=== PATIENT | female | born 1970 | race Caucasian/White ===

== ENCOUNTER 2016-07-17 10:19 | Emergency (ER) | payer OTHER ==
[~2016-07-17] VITALS: Ht 162.6 cm; Wt 87.0 kg
[~2016-07-17 10:19] MED LIST: ACET-1256 PO; ALBUAER19 INH
[2016-07-17 10:20] VITALS: TEMP 36.8; Ht 162.6 cm; Wt 87.0 kg
[2016-07-17 11:40] LABS: BASO % 0.3 %; BASO ABS # 0.03 K/uL (0-0.2); COMPLETE YES; EOS % 1.4 %; HEMATOCRIT 39.7 % (37-47); IG% 0.2 %; LYMPH % 30.9 %; LYMPH ABS # 3.08 K/uL (1.2-3.4); MEAN CELL VOLUME 88.2 fL (80-100); MEAN CORPUSCULAR HEMOGLOBIN 29.8 pg (25-34); MEAN CORPUSCULAR HGB CONC 33.8 g/dl (32-36); MEAN PLATELET VOLUME 9.7 fL (7.4-10.4); MONO % 5.5 %; NEUT % 61.7 %; PLATELET COUNT 333 K/uL (130-400); WHITE BLOOD COUNT 9.97 K/uL (4.8-10.8)
[2016-07-17 11:53] LABS: PARTIAL THROMBOPLASTIN RATIO 1.1; PROTHROMBIN TIME (PATIENT) 10.8 SECONDS (9.0-12.0)
[2016-07-17 11:57] LABS: BUN/CREATININE RATIO 13.6 (10-20); CALCIUM 8.2 mg/dl (8.5-10.1); CREATININE 0.72 mg/dl (0.60-1.20); POTASSIUM 3.4 mmol/L (3.5-5.1)
[2016-07-17 12:00] LABS: ALB/GLOB RATIO 0.9 (0.9-2)
[2016-07-17 12:04] LABS: URINE APPEARANCE CLEAR (CLEAR); URINE BILIRUBIN NEG (NEG); URINE COLOR YELLOW; URINE EPITHELIAL CELL AUTO >30 /lpf (0-5); URINE NITRITE POS (NEG); URINE PH 5.5 (4.5-7.5); URINE SPECIFIC GRAVITY 1.018 (1.000-1.030); UROBILINOGEN NEG (NEG)
[2016-07-17 12:10] LABS: MANUAL MICROSCOPIC REQUIRED? NO; REVIEW REQ? NO
[2016-07-17] MEDS ORDERED: MoRPHine SULFATE 4 MG/ML 1 ML CARP\\VIAL IV STA (12:20)
[2016-07-17] MEDS ORDERED: KETOROLAC TROMETHAMINE 30 MG/ML VIAL IV STA (12:20)
[2016-07-17] MEDS ORDERED: ONDANSETRON INJ 2 MG/ML 2 ML VIAL IV STA (12:20)
--- NOTE | 2016-07-17 12:50 | DIAGNOSTIC IMAGING REPORT ---
PELVIC ULTRASOUND, TRANSABDOMINAL AND TRANSVAGINAL HISTORY: pelvic pain, abnormal vaginal bleeding COMPARISON: Pelvic ultrasound 10/29/2013. FINDINGS: Uterus: 8.5 x 4.3 x 4.9 cm. There are few tiny nabothian cysts. No uterine masses. Endometrial stripe: 6 mm in thickness. Right ovary: Normal in size and demonstrates normal color flow. Left ovary: Normal in size and demonstrates normal color flow. Miscellaneous:No pelvic free fluid. IMPRESSION: No significant abnormality identified within the pelvis. Electronically signed by: Papo Vaughan M.D. 07/17/2016 12:49 PM Dictated Date/Time: 07/17/2016 12:47 PM
--- NOTE | 2016-07-17 13:43 | EMERGENCY ROOM VISIT NOTE ---
History First contact with patient: 10:49 Chief Complaint: ED VAG BLEEDING Stated Complaint: ABD. PAIN/BLEEDING History of Present Illness Patient is a 46-year-old white female, Ab1, last menstrual period 1 year ago, history of asthma, history of ovarian cysts, status post tubal ligation and ovarian cystectomy who presents to the emergency department for evaluation of vaginal bleeding and pelvic pain that started yesterday. As stated above, patient's last menstrual period was about a year ago. She states that she woke yesterday with bleeding that seemed like a "period." She states that she developed progressively worsening suprapubic cramping that radiated through to her low back. She states that last evening she began wearing super tampons which she states she was changing every hour because they were saturated. She was changing them every hour. She was unable to sleep last night due to the discomfort. She tried taking Vicodin, using a heating pad and taking a hot bath. She reports a history of a tubal ligation 20 years ago, she has not seen gynecology in over 18 years. She has not had a Pap smear or pelvic exam since that time. Last time she saw gynecology was for removal of the ovarian cysts. She denies any changes in her urination or bowel movements. She denies any abnormal vaginal discharge. She states that she had an ultrasound last couple of years ago. Review of Systems Review of systems as per HPI. All other systems reviewed were negative. 10 systems reviewed. 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 See Problem List. Family History Diabetes mellitus Social History Smoking Status: Current Every Day Smoker Marital Status: in relationship Housing Status: lives with family Occupation Status: employed Current/Historical Medications Scheduled PRN Hydrocodone/Acetaminophen 5MG/325MG ([place] 5MG/325MG), 1-2 TABLETS PO Q4 PRN for Pain Allergies Coded Allergies: Amoxicillin (Verified Allergy, Severe, HIVES, 10/31/15) Clavulanic Acid (Verified Allergy, Severe, HIVES, 10/31/15) Physical Exam Vital Signs Date Time Temp Pulse Resp B/P Pulse Ox O2 Delivery O2 Flow Rate FiO2 07/17/16 14:33 66 18 126/84 98 07/17/16 12:01 75 18 129/74 97 Room Air 07/17/16 10:20 36.8 84 16 147/86 100 Room Air Physical Exam CONSTITUTIONAL: Patient is a well-appearing 46-year-old white female who is awake and alert and in no acute distress. EYES: Pupils equal, round, reactive to light and accommodation. EOMs intact without nystagmus. Sclera are anicteric. ENT: Tympanic membranes intact, with normal landmarks. External canals are clear. Oral and nasopharynx are clear. Mucous membranes are moist, no lesions , tongue and gums appear normal. NECK: No bruits auscultated. Supple without lymphadenopathy. No thyromegaly. No meningeal signs. Full active range of motion without discomfort. CARDIOVASCULAR: Regular rate and rhythm, with normal S1 and S2, no murmur or gallop or rub is heard. No carotid bruits auscultated. No JVD. Peripheral pulses easily palpable. RESPIRATORY: Breath sounds equal and clear to auscultation without wheezes, rales, or rhonchi heard. Full and equal chest expansion without accessory muscle use or retractions. ABDOMEN: Bowel sounds are present. Abdomen is soft, tender in the suprapubic region without guarding, rebound or rigidity. Pelvic Exam performed by physician assistant infant toddler teacher student under my direct supervision : Genitalia are normal Vagina is clean Cervix is closed, without lesions. Dark blood noted in the vaginal vault. No active hemorrhaging through the cervix. The uterus is small, nontender The adnexa no masses, nontender INTEGUMENTARY: No lesions or rash, normal skin turgor. LYMPH: No lymphadenopathy. Medical Decision & Procedures ER Provider Diagnostic Interpretation: PELVIC ULTRASOUND, TRANSABDOMINAL AND TRANSVAGINAL HISTORY: pelvic pain, abnormal vaginal bleeding COMPARISON: Pelvic ultrasound 10/29/2013. FINDINGS: Uterus: 8.5 x 4.3 x 4.9 cm. There are few tiny nabothian cysts. No uterine masses. Endometrial stripe: 6 mm in thickness. Right ovary: Normal in size and demonstrates normal color flow. Left ovary: Normal in size and demonstrates normal color flow. Miscellaneous:No pelvic free fluid. IMPRESSION: No significant abnormality identified within the pelvis. Laboratory Results 07/17/16 11:25 Red Blood Count 4.50, Mean Corpuscular Volume 88.2, Mean Corpuscular Hemoglobin 29.8, Mean Corpuscular Hemoglobin Concent 33.8, Mean Platelet Volume 9.7, Neutrophils (%) (Auto) 61.7, Lymphocytes (%) (Auto) 30.9, Monocytes (%) (Auto) 5.5, Eosinophils (%) (Auto) 1.4, Basophils (%) (Auto) 0.3, Neutrophils # (Auto) 6.15, Lymphocytes # (Auto) 3.08, Monocytes # (Auto) 0.55, Eosinophils # (Auto) 0.14, Basophils # (Auto) 0.03 07/17/16 11:25 Test 07/17/16 11:25 07/17/16 11:45 White Blood Count 9.97 K/uL (4.8-10.8) Red Blood Count 4.50 M/uL (4.2-5.4) Hemoglobin 13.4 g/dL (12.0-16.0) Hematocrit 39.7 % (37-47) Mean Corpuscular Volume 88.2 fL (80-100) Mean Corpuscular Hemoglobin 29.8 pg (25-34) Mean Corpuscular Hemoglobin Concent 33.8 g/dl (32-36) Platelet Count 333 K/uL (130-400) Mean Platelet Volume 9.7 fL (7.4-10.4) Neutrophils (%) (Auto) 61.7 % Lymphocytes (%) (Auto) 30.9 % Monocytes (%) (Auto) 5.5 % Eosinophils (%) (Auto) 1.4 % Basophils (%) (Auto) 0.3 % Neutrophils # (Auto) 6.15 K/uL (1.4-6.5) Lymphocytes # (Auto) 3.08 K/uL (1.2-3.4) Monocytes # (Auto) 0.55 K/uL (0.11-0.59) Eosinophils # (Auto) 0.14 K/uL (0-0.5) Basophils # (Auto) 0.03 K/uL (0-0.2) RDW Standard Deviation 46.6 fL (36.4-46.3) RDW Coefficient of Variation 14.4 % (11.5-14.5) Immature Granulocyte % (Auto) 0.2 % Immature Granulocyte # (Auto) 0.02 K/uL (0.00-0.02) Prothrombin Time 10.8 SECONDS (9.0-12.0) Prothromb Time International Ratio 1.0 (0.9-1.1) Activated Partial Thromboplast Time 28.0 SECONDS (21.0-31.0) Partial Thromboplastin Ratio 1.1 Anion Gap 7.0 mmol/L (3-11) Est Creatinine Clear Calc Drug Dose 104.3 ml/min Estimated GFR () 116.4 Estimated GFR (Non- 100.4 BUN/Creatinine Ratio 13.6 (10-20) Calcium Level 8.2 mg/dl (8.5-10.1) Total Bilirubin 0.3 mg/dl (0.2-1) Aspartate Amino Transf (AST/SGOT) 19 U/L (15-37) Alanine Aminotransferase (ALT/SGPT) 26 U/L (12-78) Alkaline Phosphatase 116 U/L (45-117) Total Protein 6.8 gm/dl (6.4-8.2) Albumin 3.3 gm/dl (3.4-5.0) Globulin 3.5 gm/dl (2.5-4.0) Albumin/Globulin Ratio 0.9 (0.9-2) Thyroid Stimulating Hormone (TSH) 0.653 uIu/ml (0.300-4.500) Human Chorionic Gonadotropin, Quant < 1 mIU/mL Urine Color YELLOW Urine Appearance CLEAR (CLEAR) Urine pH 5.5 (4.5-7.5) Urine Specific [place] 1.018 (1.000-1.030) Urine Protein NEG (NEG) Urine Glucose (UA) NEG (NEG) Urine Ketones NEG (NEG) Urine Occult Blood 3+ (NEG) Urine Nitrite POS (NEG) Urine Bilirubin NEG (NEG) Urine Urobilinogen NEG (NEG) Urine Leukocyte Esterase TRACE (NEG) Urine WBC (Auto) 10-30 /hpf (0-5) Urine RBC (Auto) >30 /hpf (0-4) Urine Hyaline Casts (Auto) 1-5 /lpf (0-5) Urine Epithelial Cells (Auto) >30 /lpf (0-5) Urine Bacteria (Auto) 4+ (NEG) Medications Administered Medications (Trade) Dose Ordered Sig/Chuck Route Start Time Stop Time Status Last Admin Dose Admin Ketorolac Tromethamine (Toradol Inj) 30 mg NOW STAT IV 07/17/16 12:20 07/17/16 12:21 DC 07/17/16 12:47 30 MG Ondansetron HCl (Zofran Inj) 4 mg NOW STAT IV 07/17/16 12:20 07/17/16 12:21 DC 07/17/16 12:46 4 MG Morphine Sulfate (MoRPHine SULFATE INJ) 4 mg NOW STAT IV 07/17/16 12:20 07/17/16 12:21 DC 07/17/16 12:47 4 MG ED Course Patient was seen and evaluated as above. Old records were reviewed. IV access was obtained and she was medicated with Toradol, Zofran and morphine IV for discomfort. CBC with differential, coags, CMP, TSH, urinalysis and serum hCG were collected. Pelvic ultrasound was ordered. Laboratory studies noted a normal white count. H&H stable at 13 and 39, coags are normal. Electrolytes and liver functions are within normal limits. TSH is indicative of a euthyroid state. HCG is less than 1. Urinalysis demonstrates hematuria/infection versus contamination. She does have nitrates, WBCs and 4+ bacteria, but has greater than 30 epithelial cells. She is not experiencing any urinary symptoms, therefore urine culture was ordered and is pending. No antibiotics were ordered pending the urine culture. Pelvic ultrasound was unremarkable and did not demonstrate any acute pelvic findings. All laboratory and diagnostic imaging studies were reviewed with the patient. Differential diagnoses entertained included menstruation, dysmenorrhea, abnormal vaginal bleeding, mass or malignancy, ovarian cyst, ovarian torsion, PID, , ectopic , UTI, cystitis, renal colic, among others. The patient was encouraged to follow-up with gynecology for further care and management as she was nearly postmenopausal, then developed vaginal bleeding. She may require an endometrial biopsy. The patient reported good relief of her pain and rated it a 0/10 at discharge. Patient was reviewed in the [facility] Prescription Drug Monitoring Program, and it was noted that the patient receives monthly prescriptions of tramadol from her PCP. Medical Decision see ED course Impression Primary Impression: Abnormal vaginal bleeding Departure Information Prescriptions Hydrocodone/Acetaminophen 5MG/325MG ([place] 5MG/325MG) Tab 1-2 TABLETS PO Q4 Y for Pain, #20 TAB For Initial Treatment Prov: Amanda Gregorio PA 07/17/16 Referrals Ramon Ovalle M.D. (PCP) Mar Land M.D.(FINGER LIFT OPERATOR/OB) Patient Instructions My [facility] Additional Instructions DO NOT drive, drink alcohol, operate machinery, or perform dangerous activities today. You were given medications in the ER that can affect your ability to safely function or operate a vehicle. Hydrocodone/Acetaminophen ([place]) 5/325 mg: Take 1-2 pills every four hours for breakthrough pain. Avoid alcohol, operating machinery or dangerous equipment, working on ladders or roofs, DRIVING, or situations where being under the influence may be dangerous. It is recommended to use an [id number] stool softener such as Colace, 100mg twice daily while taking this medication to avoid constipation. Ibuprofen(Motrin, Advil) may be used for fever or pain. Use 600mg every six hours as needed. Take with food. Avoid using more than 2400mg in a 24 hour period. Do not use 2400mg per day for more than three consecutive days without physician direction. Prolonged inappropriate use can lead to stomach upset or ulcers. (AND/OR) Acetaminophen(Tylenol) may be used for fever or pain. Use 1000mg every six hours as needed. Avoid using more than 3000mg in a 24 hour period. Rest and avoid any heavy lifting or strenuous activity. Strict vaginal rest-no tampons, douching or intercourse. Drink plenty of fluids. Diet as tolerated. Follow up with [facility]-call their office to schedule an appointment. Return to the ED for worsening pain, heavier bleeding (saturating a pad in less than one hour, passing clots larger than your fist), lightheadedness, dizziness , passing out, worsening of your condition or as needed.
[2016-07-17] MEDS ORDERED: HYDR-5688 PO ×2 (13:45→14:11)
[2016-07-17 14:33] VITALS: BP 126/84; PULSE 66; O2SAT 98
--- NOTE | 2016-07-19 12:28 | Pharmacy Progress Note ---
ED Pharmacist Culture FollowUp Date of Service: Jul 19, 2016. Called patient regarding urine culture. Patient denied urinary symptoms, but she did note lower back pain towards the center of her back. Prescription for Bactrim DS 1 tab po BID x3 days called to [facility] at the patient's request. Case discussed with Amanda Gregorio PA-C, who is the prescribing provider.
== END 2016-07-17 14:25 | disposition home or self-care (01) ==
LOC: C.EDB 10:20 → C.EDC 14:25
DX: N93.9 Abnormal uterine and vaginal bleeding, unspecified (principal); J45.909 Unspecified asthma, uncomplicated; K85.90 Acute pancreatitis without necrosis or infection, unspecified; N83.209 Unspecified ovarian cyst, unspecified side; F17.210 Nicotine dependence, cigarettes, uncomplicated; Z83.3 Family history of diabetes mellitus

== ENCOUNTER 2020-10-27 10:27 | Observation (INO) ==
[2020-10-27] MEDS ORDERED: ONDANSETRON INJ 2 MG/ML 2 ML VIAL IV STA (12:20)
[2020-10-27] MEDS ORDERED: HYDROmorphone INJ 0.5 MG/0.5 ML SYR IV STA (12:20)
[2020-10-27] MEDS ORDERED: SODIUM CHLORIDE 0.9% 1000ML 1,000 ML IV ONE (12:20)
[2020-10-27 12:53] LABS: Basophils # (auto) 0.04 K/uL (0-0.2); Basophils % (auto) 0.4 %; Eosinophils # (auto) 0.08 K/uL (0-0.5); Eosinophils % (auto) 0.8 %; Hematocrit (blood only) 43.6 % (37-47); Hemoglobin 14.5 g/dL (12.0-16.0); Immature Granulocytes # (auto) 0.03 K/uL (0.00-0.02); Immature Granulocytes % (auto) 0.3 %; Lymphocytes # (auto) 2.09 K/uL (1.2-3.4); Lymphocytes % (auto) 20.2 %; Mean Corpuscular Hemoglobin 35.3 pg (25-34); Mean Corpuscular Hgb Conc 33.3 g/dL (32-36); Mean Corpuscular Volume 106.1 fL (80-100); Mean Platelet Volume 9.6 fL (7.4-10.4); Monocytes # (auto) 0.65 K/uL (0.11-0.59); Monocytes % (auto) 6.3 %; Neutrophils # (auto) 7.47 K/uL (1.4-6.5); Platelet Count 351 K/uL (130-400); RDW Coefficient of Variation 14.2 % (11.5-14.5); RDW Standard Deviation 55.5 fL (36.4-46.3); Red Blood Count 4.11 M/uL (4.2-5.4); White Blood Count 10.36 K/uL (4.8-10.8)
[2020-10-27 13:12] LABS: Albumin Level 3.6 gm/dl (3.4-5.0); BUN Creatinine Ratio 13.5 (10-20); Calcium 9.3 mg/dl (8.5-10.1); Creatinine Clr Calc Pharmacy 104.5 ml/min; Est GFR (African American) 122.5 ml/min; Est GFR (Non-African American) 105.7 ml/min; Potassium 3.5 mmol/L (3.5-5.1)
[2020-10-27 13:14] LABS: Albumin Globulin Ratio 0.9 (0.9-2); Bilirubin,Total 0.9 mg/dl (0.2-1); Globulin 3.9 gm/dl (2.5-4.0); Total Protein 7.5 gm/dl (6.4-8.2)
--- NOTE | 2020-10-27 14:06 | Ultrasound Report ---
US breast LT limited CLINICAL HISTORY: 50 years-old Female presenting with L nipple induration. TECHNIQUE: Real-time grayscale ultrasound imaging of the alveolar region of the left breast was perfo rmed for a focused evaluation at the site of clinical concern. COMPARISON: None. FINDINGS: There is 2.1 x 1.8 x 1.3 cm oval heterogeneous lesion within the retroareolar aspect of the left theresa st which shows heterogeneous posterior through transmission and peripheral blood flow. IMPRESSION: 1. Questionable lesion in the retroareolar aspect of the left breast which shows peripheral blood fl ow and heterogeneous through transmission which might be seen in gas collection within the abscess. F urther evaluation with mammography might be considered. Short-term follow-up in 2-4 weeks is recommen ded. ACT 112: Positive. There are findings on this exam that require communication between the performing entity and the patient following Patient Test Result Information Act ([place] Act 112) guidelines. Electronically signed by: Veronika Jimenez DO 10/27/2020 2:04 PM
[2020-10-27] MEDS ORDERED: ceFAZolin 2000MG 2,000 MG/15 ML SYR IV STA (14:10)
[2020-10-27] MEDS: SULFAMETHOXAZOLE/TRIMETHOPRIM DS 800/160MG TAB PO ONE ×2 (14:41→14:42)
--- NOTE | 2020-10-27 15:08 | Surgery Consultation ---
Date of Consultation October 27, 2020 Assessment & Plan (1) Abscess of left nipple: pt is a 50 year-old female who presents to ER with 10 days history left nipple pain, IMP: left nipple abscess with cellulitis, Plan, I recommend to do I/D left nipple abscess, D/W benefits, risks and alternatives of the surgery, the risks - infection, bleeding, recurrence, may need more surgery, scar, pt understood, she agrees with the surgery, I answered all questions, pre-op antibiotic, COVID-19 test Present on Admission?: Yes History of Present Illness History of Present Illness CC: left nipple pain HPI: pt is a 50 year-old female who presents to ER with 10 days history left nipple pain, pt saw her PCP diagnosis left nipple infection, pt had PO antibiotic for 7 days, the pain is worse, pt denies fever, no chest pain, no drainage from left nipple, pt had U/S study at ER diagnosis- IMPRESSION: 1. Questionable lesion in the retroareolar aspect of the left breast which shows peripheral blood flow and heterogeneous through transmission which might be seen in gas collection within the abscess. Allergies Allergy/AdvReac Type Severity Reaction Status Date / Time amoxicillin Allergy Severe HIVES Verified 10/27/20 14:45 clavulanic acid Allergy Severe HIVES Verified 10/27/20 14:45 Home Medications Medication Instructions Recorded Confirmed Type levofloxacin [Levaquin] 750 mg PO QAM 10/27/20 10/27/20 History soy isofla-blk cohosh-mag bark 1 cap PO QAM 10/27/20 10/27/20 History [Estroven] Patient History Medical History Alcohol abuse Social History (System 10/27/19 @ 08:39 by Luanne Anthony) Smoking Status: Never smoker Hx Alcohol Use: Yes Preferred Language: [place] Communication Ability: Effective Visual Impairment: No Limitations Hearing Ability: Normal Current Living Situation: Alone Feels Safe at Home: Yes Review of Systems Review of Systems: All systems reviewed & are unremarkable except as noted in HPI & below Constitutional: as per Subjective / HPI Eyes: as per Subjective / HPI Ear, Nose, Mouth, Throat: as per Subjective / HPI Respiratory: as per Subjective / HPI smoker Cardiovascular: as per Subjective / HPI Gastrointestinal: as per Subjective / HPI Genitourinary: as per Subjective / HPI Integumentary: as per Subjective / HPI Neurologic: as per Subjective / HPI Psychiatric: as per Subjective / HPI Endocrine: as per Subjective / HPI Hematologic / Lymphatic: as per Subjective / HPI Physical Exam Constitutional: WD/WN, vitals as above well developed and well nourished Eyes: PERRL, conjunctivae normal, anicteric sclerae ENMT: external ear and nose normal, oropharynx normal Neck: trachea midline, no thyromegaly Respiratory: normal respiratory effort, lungs clear to auscultation Cardiovascular: RRR, no murmur, no edema Rate/Rhythm: regular rate and regular rhythm Chest (Breasts): Additional Comments: left breast nipple redness, tenderness with small abscess on top on nipple, mild redness around left nipple, Gastrointestinal (Abdomen): normal bowel sounds, soft, nontender, no hepatosplenomegaly Musculoskeletal: no cyanosis or clubbing, extremities motor strength 5/5 Skin: no rashes, warm and dry Neurologic: patellar DTR's 2+ bilat, sensation intact Psychiatric: Orientation: alert and oriented x 3 Results & Data ([facility]) Vital Signs (Past 12 Hours) Vital Signs Temp Pulse Pulse Resp BP BP Pulse Ox 10/27/20 14:43 92 H 18 141/78 H 97 10/27/20 12:33 88 20 155/88 H 97 10/27/20 11:18 87 16 130/78 98 10/27/20 10:34 36.7 C 103 H 20 140/80 98 Laboratory Results Abnormal lab results 10/27/20 10/27/20 Range/Units 12:35 12:35 RBC 4.11 L (4.2-5.4) M/uL MCV 106.1 H (80-100) fL MCH 35.3 H (25-34) pg RDW Std Deviation 55.5 H (36.4-46.3) fL Neut # (Auto) 7.47 H (1.4-6.5) K/uL [place] # (Auto) 0.65 H (0.11-0.59) K/uL Immature Gran # (Auto) 0.03 H (0.00-0.02) K/uL Glucose 108 H (70-99) mg/dl Diagnostic Findings U/S study
--- NOTE | 2020-10-27 15:16 | History & Physical Bridge Note ---
Date of Service October 27, 2020 History & Physical Bridge Note I have examined the patient, reviewed the History & Physical and in the interval since the performance of the History & Physical I have noted the following changes of clinical significance: no changes noted
--- NOTE | 2020-10-27 15:58 | Emergency Department Note ---
History of Present Illness General Chief complaint: Breast Pain/Problems Stated complaint: BLOCKED DUCT IN LEFT BREAST Source: patient and RN notes reviewed Mode of arrival: ambulatory Limitations: no limitations History of Present Illness Provider complaint: L breast pain Maximum Pain Intensity: 8 This pt is a 50 yo female who presents to the ED with c/o L breast pain. Pt had noticed swelling and irritation about a week ago and was tx with Levaquin by here PCP (pt had just finished a course of amoxicillin for sinusitis). She presents today because the redness has spread and now there is a red line up the breast. pt noted the nipple to very painful to even rub her shirt. IT is mar kedly swollen, but no drainage. Pt denies fevers. She denies recent trauma Home Medications Medication Instructions Recorded Confirmed Type Estroven 1 cap PO QAM 10/27/20 10/27/20 History levofloxacin 750 mg PO QAM 10/27/20 10/27/20 History oxycodone-acetaminophen [Percocet] 1 tab PO Q6H PRN #10 tab 10/28/20 Rx sulfamethoxazole-trimethoprim 1 tab PO BID 10 Days #20 tab 10/28/20 Rx [Bactrim DS] Allergies Allergy/AdvReac Type Severity Reaction Status Date / Time amoxicillin Allergy Severe HIVES Verified 10/27/20 14:45 clavulanic acid Allergy Severe HIVES Verified 10/27/20 14:45 Past Med/Surg History Medical History (Updated 11/04/20 @ 15:22 by Fabiola Holman MD) Alcohol abuse Smoker Tobacco dependence Social History Smoking Status: Current every day smoker Cigarettes Per Day: 1 pack; Hx Alcohol Use: Yes Alcohol type: beer and hard liquor Hx Substance Use: No Preferred Language: Setswana Communication Ability: Effective Visual Impairment: No Limitations Hearing Ability: Normal Pusher Runner Required: No Beliefs That Will Affect Care: None Current Living Situation: Alone Feels Safe at Home: Yes Review of Systems See HPI for pertinent positives & negatives. and A total of 10 systems reviewed and were otherwise negative Physical Exam Vital Signs Vital Signs - 24 hr 10/27/20 10:34 10/27/20 11:18 10/27/20 12:33 Temperature 36.7 C Temperature Source Temporal Artery Scan Pulse Rate 103 H Pulse Rate [Right Finger] 87 88 Pulse Rhythm [Right Finger] Regular Respiratory Rate 20 16 20 Respiratory Effort / Characteristics Non-Labored Non-Labored Non-Labored Respiratory Depth Normal Normal Normal Respiratory Pattern Regular Blood Pressure 140/80 Blood Pressure [Right Arm] 130/78 155/88 H Blood Pressure Mean 100 Blood Pressure Mean [Right Arm] 95 110 Blood Pressure Position Sitting Pulse Oximetry 98 98 97 Oxygen Delivery Method Room Air Room Air Room Air Sepsis Recent Fever Within 48 Hours No Sepsis New/Unexplained Change in Mental Status No Sepsis Action Taken by Nursing No Action Required 10/27/20 14:43 Temperature Temperature Source Pulse Rate Pulse Rate [Right Finger] 92 H Pulse Rhythm [Right Finger] Respiratory Rate 18 Respiratory Effort / Characteristics Non-Labored Spontaneous Respiratory Depth Normal Respiratory Pattern Blood Pressure Blood Pressure [Right Arm] 141/78 H Blood Pressure Mean Blood Pressure Mean [Right Arm] 99 Blood Pressure Position Pulse Oximetry 97 Oxygen Delivery Method Room Air Sepsis Recent Fever Within 48 Hours Sepsis New/Unexplained Change in Mental Status Sepsis Action Taken by Nursing Vital signs reviewed. General: Well-appearing 50 yo female, in no significant distress. HEENT: No scleral icterus, PERRLA, neck supple. Breast: L breast with induration beneath the areola and tenderness, nipple is swollen and erythematous. no drainage or open lesion. +lymphangitic streaking. Cardiovascular: Regular rate and rhythm, no extra sounds. Pulmonary: Clear to auscultation bilaterally, normal work of breathing. Abdomen: Soft, nontender, nondistended, positive bowel sounds. Musculoskeletal: Atraumatic, no peripheral edema. Neurologic: Patient awake alert and oriented x 3 Skin: Warm, dry, L breast as above. Course Administered Medications Discontinued Medications Bacitracin (Bacitracin Oint 15 Gm Tube) Confirm Administered Dose 45 appln .ROUTE .Synchronized ONE Stop: 10/27/20 18:56 Last Admin: 10/27/20 19:04 Dose: 1 appln Documented by: [id number] Bupivacaine HCl (Bupivacaine 0.5 % 5 Mg/1 Ml Mpf 30ml Vial) Confirm Administered Dose 30 ml .ROUTE .STK-MED ONE Stop: 10/27/20 18:56 Last Admin: 10/27/20 19:04 Dose: 10 ml Documented by: [id number] Hydromorphone HCl (Hydromorphone Inj 0.5 Mg/0.5 Ml Syr) 0.5 mg IV NOW STA Stop: 10/27/20 12:21 Last Admin: 10/27/20 12:39 Dose: 0.5 mg Documented by: [id number] Sodium Chloride (Nss 1000ml) 1,000 mls @ 999 mls/hr IV .[id number] ONE Stop: 10/27/20 13:20 Last Infusion: 10/27/20 14:52 Dose: 0 mls/hr Documented by: [id number] Admin: 10/27/20 12:38 Dose: 999 mls/hr Documented by: [id number] Cefazolin Sodium (Ancef 2000mg) 2,000 mg in 15 mls @ 3.75 mls/min IV NOW STA Stop: 10/27/20 14:13 Last Admin: 10/27/20 14:41 Dose: 3.75 mls/min Documented by: [id number] Lactated Ringer's (Lr) 1,000 mls @ 80 mls/hr IV .[id number] DAE Stop: 11/26/20 20:14 Last Admin: 10/28/20 10:12 Dose: Not Given Documented by: [id number] Infusion: 10/28/20 10:11 Dose: 0 mls/hr Documented by: [id number] Admin: 10/27/20 20:44 Dose: 80 mls/hr Documented by: [id number] Clindamycin Phosphate 600 mg/ (Dextrose) 54 mls @ 108 mls/hr IV Q8H [facility] Stop: 11/06/20 20:29 Last Admin: 10/28/20 12:02 Dose: Not Given Documented by: [id number] Infusion: 10/28/20 04:46 Dose: 0 mls/hr Documented by: [id number] Admin: 10/28/20 03:26 Dose: 108 mls/hr Documented by: [id number] Infusion: 10/27/20 21:45 Dose: 0 mls/hr Documented by: [id number] Admin: 10/27/20 20:56 Dose: 108 mls/hr Documented by: [id number] Levofloxacin (Levofloxacin 750 Mg Tab) 750 mg PO QAM [facility] Stop: 11/07/20 08:59 Last Admin: 10/28/20 08:00 Dose: 750 mg Documented by: [id number] Lidocaine HCl (Lidocaine Hcl 1% 20 Ml Vial) Confirm Administered Dose 20 ml .ROUTE .STK-MED ONE Stop: 10/27/20 18:56 Last Admin: 10/27/20 23:57 Dose: Not Given Documented by: [id number] Ondansetron HCl (Ondansetron Inj 2 Mg/Ml 2 Ml Vial) 4 mg IV NOW STA Stop: 10/27/20 12:21 Last Admin: 10/27/20 12:38 Dose: 4 mg Documented by: [id number] Oxycodone/Acetaminophen (Oxycodone/Acetaminophen 5mg/325mg Tab) 1 tab PO Q4H PRN PRN Reason: Pain Stop: 11/10/20 20:14 Last Admin: 10/28/20 13:10 Dose: 1 tab Documented by: [id number] Admin: 10/28/20 06:14 Dose: 1 tab Documented by: [id number] Trimethoprim/Sulfamethoxazole (Sulfamethoxazole/Trimethoprim Ds 800/160mg Tab) 1 tab PO NOW ONE Stop: 10/27/20 14:11 Last Admin: 10/27/20 14:42 Dose: 1 tab Documented by: [id number] Admin: 10/27/20 14:41 Dose: 1 tab Documented by: [id number] Medical Decision Making Differential Diagnosis Cellulitis, mass, abscess, MRSA infection, DVT, necrotizing fasciitis, dermati tis, drug eruption, allergic reaction, as well as other pathologies. Medical Records Attestation: I reviewed the patient's medical records. Home Medications Current Medication List: was personally reviewed by me Laboratory Data Attestation: I reviewed the patient's lab results. Result diagrams: 10/28/20 04:51 10/27/20 12:35 Lab Results 10/27/20 10/27/20 10/27/20 Range/Units 12:35 12:35 14:59 WBC 10.36 (4.8-10.8) K/uL RBC 4.11 L (4.2-5.4) M/uL Hgb 14.5 (12.0-16.0) g/dL Hct 43.6 (37-47) % MCV 106.1 H (80-100) fL MCH 35.3 H (25-34) pg MCHC 33.3 (32-36) g/dL RDW Std Deviation 55.5 H (36.4-46.3) fL RDW Coeff of Gino 14.2 (11.5-14.5) % Plt Count 351 (130-400) K/uL MPV 9.6 (7.4-10.4) fL Immature Gran % (Auto) 0.3 % Neut % (Auto) 72.0 % Lymph % (Auto) 20.2 % [place] % (Auto) 6.3 % Eos % (Auto) 0.8 % Baso % (Auto) 0.4 % Neut # (Auto) 7.47 H (1.4-6.5) K/uL Lymph # (Auto) 2.09 (1.2-3.4) K/uL [place] # (Auto) 0.65 H (0.11-0.59) K/uL Eos # (Auto) 0.08 (0-0.5) K/uL Baso # (Auto) 0.04 (0-0.2) K/uL Immature Gran # (Auto) 0.03 H (0.00-0.02) K/uL Sodium 137 (136-145) mmol/L Potassium 3.5 (3.5-5.1) mmol/L Chloride 104 (98-107) mmol/L Carbon Dioxide 28 (21-32) mmol/L Anion Gap 5.0 (3-11) BUN 8 (7-18) mg/dl Creatinine 0.61 (0.6-1.2) mg/dl Est Cr Clr Drug Dosing 104.5 ml/min Est GFR ( Amer) 122.5 ml/min Est GFR (Non-Af Amer) 105.7 ml/min BUN/Creatinine Ratio 13.5 (10-20) Glucose 108 H (70-99) mg/dl Calcium 9.3 (8.5-10.1) mg/dl Total Bilirubin 0.9 (0.2-1) mg/dl AST 27 (15-37) U/L ALT 31 (12-78) U/L Alkaline Phosphatase 82 (45-117) U/L Total Protein 7.5 (6.4-8.2) gm/dl Albumin 3.6 (3.4-5.0) gm/dl Globulin 3.9 (2.5-4.0) gm/dl Albumin/Globulin Ratio 0.9 (0.9-2) COVID-19 Eval Order Covid19 at [facility] SARS-CoV-2 (PCR) (Negative) 10/27/20 Range/Units 14:59 WBC (4.8-10.8) K/uL RBC (4.2-5.4) M/uL Hgb (12.0-16.0) g/dL Hct (37-47) % MCV (80-100) fL MCH (25-34) pg MCHC (32-36) g/dL RDW Std Deviation (36.4-46.3) fL RDW Coeff of Gino (11.5-14.5) % Plt Count (130-400) K/uL MPV (7.4-10.4) fL Immature Gran % (Auto) % Neut % (Auto) % Lymph % (Auto) % [place] % (Auto) % Eos % (Auto) % Baso % (Auto) % Neut # (Auto) (1.4-6.5) K/uL Lymph # (Auto) (1.2-3.4) K/uL [place] # (Auto) (0.11-0.59) K/uL Eos # (Auto) (0-0.5) K/uL Baso # (Auto) (0-0.2) K/uL Immature Gran # (Auto) (0.00-0.02) K/uL Sodium (136-145) mmol/L Potassium (3.5-5.1) mmol/L Chloride (98-107) mmol/L Carbon Dioxide (21-32) mmol/L Anion Gap (3-11) BUN (7-18) mg/dl Creatinine (0.6-1.2) mg/dl Est Cr Clr Drug Dosing ml/min Est GFR ( Amer) ml/min Est GFR (Non-Af Amer) ml/min BUN/Creatinine Ratio (10-20) Glucose (70-99) mg/dl Calcium (8.5-10.1) mg/dl Total Bilirubin (0.2-1) mg/dl AST (15-37) U/L ALT (12-78) U/L Alkaline Phosphatase (45-117) U/L Total Protein (6.4-8.2) gm/dl Albumin (3.4-5.0) gm/dl Globulin (2.5-4.0) gm/dl Albumin/Globulin Ratio (0.9-2) COVID-19 Eval Order SARS-CoV-2 (PCR) NEGATIVE (Negative) Imaging Data Radiologist's Impression: Breast Ultrasound 10/27/20 12:20 US breast LT limited CLINICAL HISTORY: 50 years-old Female presenting with L nipple induration. TECHNIQUE: Real-time grayscale ultrasound imaging of the alveolar region of the left breast was performed for a focused evaluation at the site of clinical concern. COMPARISON: None. FINDINGS: There is 2.1 x 1.8 x 1.3 cm oval heterogeneous lesion within the retroareolar aspect of the left breast which shows heterogeneous posterior through transmission and peripheral blood flow. IMPRESSION: 1. Questionable lesion in the retroareolar aspect of the left breast which shows peripheral blood flow and heterogeneous through transmission which might be seen in gas collection within the abscess. Further evaluation with mammography might be considered. Short-term follow-up in 2-4 weeks is recommended. ACT 112: Positive. There are findings on this exam that require communication between the performing entity and the patient following Patient Test Result Information Act ([place] Act 112) guidelines. Electronically signed by: Veronika Jimenez DO 10/27/2020 2:04 PM Blood Pressure Blood Pressure Findings: Elevated blood pressure Blood Pressure Disposition: elevated BP felt to be situational MDM Narrative This pt was evaluated and appeared to be in no distress. IV access was obtained and lab work was drawn. Lab work was reassuring. IVF were initiated and pt was medicated with IV dilaudid and zofran. US of the breast was performed and is concerning for nipple abscess. Dr. Choe of general surgery was consulted and evaluated the pt. He took the pt to the OR for definitive management. Pt was aware of the plan and agreed. Impression & Plan Abscess of left nipple Discharge Plan Visit Data Chief Complaint: Breast Pain/Problems Stated Complaint: BLOCKED DUCT IN LEFT BREAST ED Provider: Fabiola Holman Discharge Problem: Abscess of left nipple Patient Disposition: Admitted As Inpatient Condition: Good
--- NOTE | 2020-10-27 18:09 | Anesthesiology Consultation ---
Date of Service October 27, 2020 Assessment & Plan (1) Encounter for pre-operative examination: Chart Review Chart Review: Acceptable Risk for Surgery and Patient NOT seen in Pre Admission Testing Consults Requested none ASA ASA2 Proposed Anesthesia Anesthesia Type: General History Surgery Operation Date: 10/27/20 09:20 Proposed Procedures p Left Incision and Drainage Nipple Abscess - Yovany Choe MD Height/Weight Height: 5 ft 4 in Weight: 68 kg Allergies Allergy/AdvReac Type Severity Reaction Status Date / Time amoxicillin Allergy Severe HIVES Verified 10/27/20 14:45 clavulanic acid Allergy Severe HIVES Verified 10/27/20 14:45 Medications Home Medications Medication Instructions Recorded Confirmed Last Taken levofloxacin [Levaquin] 750 mg PO QAM 10/27/20 10/27/20 10/26/20 soy isofla-blk cohosh-mag bark 1 cap PO QAM 10/27/20 10/27/20 10/26/20 [Estroven] NPO Date Last Intake of Fluids: 10/27/20 Time Last Intake of Fluids: 14:42 Last Intake of Fluids Comment: sip with po med Date Last Intake of Solids: 10/26/20 Time Last Intake of Solids: 20:00 Past Medical History Medical History Alcohol abuse Social History Smoking Status: Never smoker Hx Alcohol Use: Yes Physical Exam Vital Signs Last Vital Signs Temp 37.5 C 10/27/20 17:43 Pulse 85 10/27/20 17:43 Resp 18 10/27/20 17:43 BP 129/66 10/27/20 17:43 Pulse Ox 95 10/27/20 17:43 Lab Results Anesthesia Preop Results Results Anesthesia Widget: WBC 10.36 K/uL (4.8-10.8) 10/27/20 Hgb 14.5 g/dL (12.0-16.0) 10/27/20 Hct 43.6 % (37-47) 10/27/20 Plt 351 K/uL (130-400) 10/27/20 Na 137 mmol/L (136-145) 10/27/20 K 3.5 mmol/L (3.5-5.1) 10/27/20 Cl 104 mmol/L (98-107) 10/27/20 CO2 28 mmol/L (21-32) 10/27/20 BUN 8 mg/dl (7-18) 10/27/20 Creat 0.61 mg/dl (0.6-1.2) 10/27/20 Glucose Level 108 mg/dl (70-99) H 10/27/20 COVID-19 PCR NEGATIVE (Negative) 10/27/20 Testing Laboratory Results 10/27/20 12:35 10/27/20 12:35
[2020-10-27] MEDS ORDERED: ePHEDrine sulfate 50 MG/ML AMP IV PRN (18:11)
[2020-10-27] MEDS ORDERED: fentaNYL citrate 100 MCG/2 ML VIAL IV PRN (18:11)
[2020-10-27] MEDS ORDERED: ATROPINE SULFATE 0.1 MG/ML 10ML SYR IV PRN (18:11)
[2020-10-27] MEDS ORDERED: ONDANSETRON INJ 2 MG/ML 2 ML VIAL IV PRN ×2 (18:11→19:18)
[2020-10-27] MEDS ORDERED: LIDOCAINE 2% 2 ML VIAL/AMP(20MG/ML) INFIL ONE (18:25)
[2020-10-27] MEDS ORDERED: ONDANSETRON INJ 2 MG/ML 2 ML VIAL ONE (18:25)
[2020-10-27] MEDS ORDERED: PROPOFOL IV EMULSION 10 MG/ML 20 ML VIAL IV ONE (18:25)
[2020-10-27] MEDS ORDERED: DEXAMETHASONE SOD INJ 4 MG/ML VIAL ONE (18:25)
[2020-10-27] MEDS ORDERED: MIDAZOLAM HCL 1 MG/ML 2ML VIAL ONE (18:26)
[2020-10-27] MEDS ORDERED: fentaNYL citrate 100 MCG/2 ML VIAL ONE (18:26)
[2020-10-27] MEDS ORDERED: LIDOCAINE 1% LOCAL 20 ML VIAL ONE (18:55)
[2020-10-27] MEDS ORDERED: BUPIVACAINE 0.5 % 5 MG/1 ML MPF 30ML VIAL ONE (18:55)
[2020-10-27] MEDS ORDERED: BACITRACIN OINT 15 GM TUBE ONE (18:55)
[2020-10-27] MEDS ORDERED: KETOROLAC 30 MG/ML VIAL ONE (19:06)
--- NOTE | 2020-10-27 19:07 | Post Operative Brief Note ---
Immediate Post Op Note v1 Date of Surgery October 27, 2020 Pre & Post Diagnosis Operation Date: 10/27/20 09:20 Pre-Op Diagnosis: left nipple abscess Post-Op Diagnosis: left nipple abscess I identified the patient and participated in the time-out.: Yes Procedure Operation Date: 10/27/20 09:20 incision and drainage left nipple abscess Surgeon Yovany Choe MD Outpatient Surgery Rn surgical physician assistant Estimated Blood Loss 3 Findings Consistent with Post-Op Diagnosis left nipple abscess, wound culture sent Fluids 600ml Specimens none Drains Other (packing the wound) Anesthesia Type General Complications none Disposition Accompanied Patient To Recovery: Yes Disposition: Recovery Room Overlapping Procedure I was immediately available: during the entire case.
[2020-10-27] MEDS ORDERED: AMPICILLIN/SULBACTAM SOD 1,500 MG in 0.9 % SODIUM CHLORIDE 100 ML IV SCH (20:15)
[2020-10-27] MEDS ORDERED: HYDROmorphone INJ 1 MG/ML SYRINGE IV PRN (20:15)
--- NOTE | 2020-10-27 20:20 | Anesthesiology Progress Note ---
Date of Service October 27, 2020 Anesthesia Post Procedure Vital Signs Vital Signs: Temp Pulse Pulse Pulse Resp BP BP 10/27/20 19:55 78 20 130/84 10/27/20 19:45 36.6 C 85 12 129/71 10/27/20 19:35 76 17 137/91 10/27/20 19:25 82 18 134/82 10/27/20 19:19 36.4 C L 91 H 18 151/87 H 10/27/20 17:43 37.5 C 85 18 129/66 10/27/20 16:39 76 18 133/78 10/27/20 14:43 92 H 18 141/78 H 10/27/20 12:33 88 20 155/88 H 10/27/20 11:18 87 16 130/78 10/27/20 10:34 36.7 C 103 H 20 140/80 Pulse Ox 10/27/20 19:55 94 10/27/20 19:45 97 10/27/20 19:35 100 10/27/20 19:25 100 10/27/20 19:19 100 10/27/20 17:43 95 10/27/20 16:39 96 10/27/20 14:43 97 10/27/20 12:33 97 10/27/20 11:18 98 10/27/20 10:34 98 Pain Intensity Left Breast: Pain Intensity: 8 Transfer of Care Handoff Completed per policy Notes Mental Status: alert / awake / arousable Patient Amnestic to Procedure: Yes Nausea / Vomiting: adequately controlled Pain: adequately controlled Airway Patency, RR, SpO2: stable & adequate BP & HR: stable & adequate Hydration State: stable & adequate Anesthetic Complications: no major complications apparent
[2020-10-27] MEDS: LACTATED RINGER'S 1,000 ML IV SCH (20:44)
[2020-10-27] MEDS: CLINDAMYCIN 600 MG in DEXTROSE 5% 50 ML IV SCH (20:56)
--- NOTE | 2020-10-27 23:41 | Operative Report (OR) ---
DATE OF PROCEDURE: 10/27/2020 PREOPERATIVE DIAGNOSIS: Left breast nipple abscess. POSTOPERATIVE DIAGNOSIS: Left breast nipple abscess. PROCEDURE: Incision and drainage of left nipple abscess. SURGEON: Yoavny Choe MD. ANESTHESIA: General. ESTIMATED BLOOD LOSS: About 3 mL. FINDING: Left nipple abscess. COMPLICATIONS: None. INDICATIONS FOR THE PROCEDURE: This is a 50-year-old female who presented with 10 days history of le ft nipple pain and the patient took one week of p.o. antibiotics and the pain is getting worse. The patient had ultrasound diagnostic of left nipple abscess. I recommended to do incision and drainage of left nipple abscess. I did talk to the patient about the benefit, risk, alternate procedure. I i ndicated the risks may include, but not limited to, such as bleeding, infection, recurrence, scar, po ssible need for more procedure, deformity of nipple and even loss of the nipple. The patient underst ands and she signed informed consent and she agreed to proceed with the procedure. I answered all qu estions. DETAILS OF PROCEDURE: After we identified the patient and verified the procedure, we brought the pat ient to the OR, put the patient on the supine position. The patient received SCD on bilateral legs t o prevent DVT. Also, patient received 2 grams of Ancef IV for prophylactic antibiotic. The patient received general anesthesia without difficulty. The left-sided breast was prepped and draped in rout ine sterile fashion. After timeout, I made a small incision on the nipple and some pus came out imme diately, about 3 mL of pus came out. We sent a wound culture. Once we cleaned up the pus and no mor e pus coming out, we packed with quarter-inch Kerlix packing the incision and also I injected local a nesthesia by using 1% lidocaine mixed with 0.5% Marcaine around the base of the nipple. Then, we put the dressing on. The patient tolerated the procedure well. All instrument, needle and sponge count s were correct x2 at the end of the case. The patient was transferred to recovery room in stable con dition. Wound cultures were sent to the lab. After the procedure, I did talk to the patient about t he OR finding and the procedure we did, she understands. Job ID: [id number]
[2020-10-28] MEDS: CLINDAMYCIN 600 MG in DEXTROSE 5% 50 ML IV SCH ×2 (03:26→12:02)
[2020-10-28 05:05] LABS: Basophils # (auto) 0.01 K/uL (0-0.2); Basophils % (auto) 0.1 %; Hematocrit (blood only) 38.4 % (37-47); Hemoglobin 12.8 g/dL (12.0-16.0); Immature Granulocytes # (auto) 0.01 K/uL (0.00-0.02); Immature Granulocytes % (auto) 0.1 %; Lymphocytes # (auto) 0.77 K/uL (1.2-3.4); Lymphocytes % (auto) 10.7 %; Mean Corpuscular Hemoglobin 35.5 pg (25-34); Mean Corpuscular Hgb Conc 33.3 g/dL (32-36); Mean Corpuscular Volume 106.4 fL (80-100); Mean Platelet Volume 9.5 fL (7.4-10.4); Monocytes # (auto) 0.14 K/uL (0.11-0.59); Neutrophils # (auto) 6.24 K/uL (1.4-6.5); Neutrophils % (auto) 87.1 %; Platelet Count 319 K/uL (130-400); RDW Coefficient of Variation 13.9 % (11.5-14.5); RDW Standard Deviation 54.2 fL (36.4-46.3); Red Blood Count 3.61 M/uL (4.2-5.4); White Blood Count 7.17 K/uL (4.8-10.8)
[2020-10-28] MEDS: oxyCODONE/ACETAMINOPHEN 5mg/325mg TAB PO PRN ×2 (06:14→13:10)
[2020-10-28] MEDS ORDERED: NON-FORMULARY MEDICATION (Soy Isofla-Blk Cohosh-Mag Bark [Estroven] 155 mg Capsule) PO SCH (09:00)
[2020-10-28] MEDS ORDERED: levoFLOXacin 750 MG TAB PO SCH (09:00)
[2020-10-28] MEDS: LACTATED RINGER'S 1,000 ML IV SCH (10:12)
--- NOTE | 2020-10-28 11:18 | Surgery Progress Note ---
Date of Service F/U S/P I/D left nipple abscess, pt feels better, less pain, no fever, October 28, 2020 Assessment & Plan (1) Abscess of left nipple: pt is a 50 year-old female who presents to ER with 10 days history left nipple pain, IMP: left nipple abscess with cellulitis, Plan, I recommend to do I/D left nipple abscess, D/W benefits, risks and alternatives of the surgery, the risks - infection, bleeding, recurrence, may need more surgery, scar, pt understood, she agrees with the surgery, I answered all questions, pre-op antibiotic, COVID-19 test 10/28/2020 11:16AM F/U S/P I/D left nipple abscess, POD 1 pt is doing fine, pt wants to go home today, the post-op care instruction was given, F/U me 1 week, Admission and Anticipated Discharge Date Admission Date: October 27, 2020 Review of Systems Constitutional: as per Subjective / HPI Eyes: as per Subjective / HPI Ear, Nose, Mouth, Throat: as per Subjective / HPI Respiratory: as per Subjective / HPI smoker Cardiovascular: as per Subjective / HPI Gastrointestinal: as per Subjective / HPI Genitourinary: as per Subjective / HPI Integumentary: as per Subjective / HPI Neurologic: as per Subjective / HPI Psychiatric: as per Subjective / HPI Endocrine: as per Subjective / HPI Hematologic / Lymphatic: as per Subjective / HPI Physical Exam Constitutional: WD/WN, vitals as above well developed and well nourished Eyes: PERRL, conjunctivae normal, anicteric sclerae ENMT: external ear and nose normal, oropharynx normal Neck: trachea midline, no thyromegaly Respiratory: normal respiratory effort, lungs clear to auscultation Cardiovascular: RRR, no murmur, no edema Rate/Rhythm: regular rate and regular rhythm Chest (Breasts): Additional Comments: the dressing intact, no drainage, Gastrointestinal (Abdomen): normal bowel sounds, soft, nontender, no hepatosplenomegaly Musculoskeletal: no cyanosis or clubbing, extremities motor strength 5/5 Skin: no rashes, warm and dry Neurologic: patellar DTR's 2+ bilat, sensation intact Psychiatric: Orientation: alert and oriented x 3 Results & Data ([facility]) Vital Signs (Past 12 Hours) Vital Signs Temp Pulse Pulse Resp BP Pulse Ox 10/28/20 06:53 36.8 C 82 16 144/81 H 94 10/28/20 03:27 36.6 C 79 16 131/82 96 10/27/20 23:15 36.8 C 76 16 119/78 94 Laboratory Results Abnormal lab results 10/27/20 10/27/20 10/28/20 Range/Units 12:35 12:35 04:51 RBC 4.11 L 3.61 L (4.2-5.4) M/uL MCV 106.1 H 106.4 H (80-100) fL MCH 35.3 H 35.5 H (25-34) pg RDW Std Deviation 55.5 H 54.2 H (36.4-46.3) fL Neut # (Auto) 7.47 H (1.4-6.5) K/uL Lymph # (Auto) 0.77 L (1.2-3.4) K/uL Sac # (Auto) 0.65 H (0.11-0.59) K/uL Immature Gran # (Auto) 0.03 H (0.00-0.02) K/uL Glucose 108 H (70-99) mg/dl
--- NOTE | 2020-10-28 14:54 | Discharge Summary (DS) ---
DATE OF ADMISSION: 10/27/2020 DATE OF DISCHARGE: 10/28/2020 ADMITTING DIAGNOSIS: Left nipple abscess. DISCHARGE DIAGNOSIS: Left nipple abscess. OPERATION: Incision and drainage, left nipple abscess. SURGEON: Yovany Choe MD. DETAILS OF DISCHARGE SUMMARY: This is a 50-year-old female who presented to the ED with 10 days history of left nipple pain and the patient had ultrasound diagnosis of left nipple abscess. We took the patient to the OR on 10/27/2020. We did incision and drainage of the abscess on the left nipple. The patient tolerated the procedure well. After the procedure, the patient was transferred to the regular room. The patient is doing fine. No significant pain. PHYSICAL EXAMINATION: VITAL SIGNS: Temperature is 36.8, respiratory rate 16, heart rate 82, blood pressure 144/81, O2 saturation 94% on room air. GENERAL: Patient is alert, awake, oriented x3. HEENT: Within normal limitation. NEUROLOGIC: Exam is intact. NECK: No JVD. CHEST: Bilateral lung sounds clear. Incision intact. No drainage, dry. No redness. HEART: Normal S1 and S2. No murmur. ABDOMEN: Soft and no tenderness. EXTREMITIES: No edema. The patient wanted to go home today. DISCHARGE INSTRUCTIONS: We gave the patient postop care instruction, patient understands. Patient said her daughter is a nurse and she can change the packing for her once a day and we gave the patient supplies to change the packing. Also, I gave the patient a Bactrim 800/160 one p.o. b.i.d. x10 days. I will follow up the patient in one week. Job ID: [id number] [facility]
== END 2020-10-28 13:47 | disposition home or self-care (01) ==
LOC: ED 10:27 → OR 17:09 → 3N 17:09